=== PATIENT | female | born 1980 | race African-American/Black ===

== ENCOUNTER 2016-06-14 05:41 | Inpatient (IN) | payer BC ==
[2016-06-07 10:11] LABS: HEMATOCRIT 35.8 % (36.0-47.0); HEMOGLOBIN 11.7 g/dL (12.0-15.5); HGB HCT DIFFERENCE -0.7; MEAN CORPUSCULAR HEMOGLOBIN 28.1 pg (27.0-33.4); MEAN CORPUSCULAR HGB CONC 32.6 g/dL (32.0-36.0); MEAN CORPUSCULAR VOLUME 86 fl (80-97); RED BLOOD COUNT 4.15 10^6/uL (3.72-5.28); RED CELL DISTRIBUTION WIDTH 13.6 % (11.5-14.0); WHITE BLOOD COUNT 7.4 10^3/uL (4.0-10.5)
[2016-06-07 10:36] LABS: ANION GAP 14 (5-19); BLOOD UREA NITROGEN 12 mg/dL (7-20); CALCIUM 9.4 mg/dL (8.4-10.2); CARBON DIOXIDE 26 mmol/L (22-30); CHLORIDE 102 mmol/L (98-107); CREATININE RESULT 0.73 mg/dL (0.52-1.25); GLUCOSE 113 mg/dL (75-110); POTASSIUM 3.6 mmol/L (3.6-5.0); SODIUM 141.5 mmol/L (137-145)
[~2016-06-14 05:41] MED LIST: CEFAZOLIN SODIUM 1 GM in DEXTROSE 5%-WATER 50 ML IV PRN; LACTATED RINGERS 1000 ML IV PRN; LIDOCAINE 0.5% INJ-PF (5 MG/ML) 50 ML SDV SUBCUT PRN
[2016-06-14] MEDS ORDERED: BUPIVACAINE HCL 0.25 % INJ/PF (2.5 MG/1 ML) 30 ML VIAL ONE (06:38)
[2016-06-14] MEDS ORDERED: BUPIVACAINE INJ/PF LIPOSOME/PF 266 MG/20 ML SDV ONE (06:38)
[2016-06-14] MEDS ORDERED: PROPOFOL INJ 200 MG/20 ML VIAL IV ONE (07:25)
[2016-06-14] MEDS ORDERED: MIDAZOLAM 2 MG/2 ML INJ ONE (07:25)
[2016-06-14] MEDS ORDERED: HYDROMORPHONE HCL INJ/PF 2 MG/ML AMPULE ONE (07:25)
[2016-06-14] MEDS ORDERED: FENTANYL CITRATE INJ/PF 250 MCG/5 ML AMPULE ONE (07:25)
[2016-06-14] MEDS ORDERED: ACETAMINOPHEN 100 ML IV ONE (07:25)
[2016-06-14] MEDS ORDERED: DEXAMETHASONE SOD PHOSPHATE INJ 4 MG/1 ML VIAL ONE (07:43)
[2016-06-14] MEDS ORDERED: ROCURONIUM BROMIDE INJ 50 MG/5 ML VIAL IV ONE (07:43)
[2016-06-14] MEDS ORDERED: GLYCOPYRROLATE INJ 0.4 MG/2 ML VIAL ONE (07:43)
[2016-06-14] MEDS ORDERED: SUCCINYLCHOLINE CHLORIDE INJ 200 MG/10 ML VIAL ONE (07:43)
[2016-06-14] MEDS ORDERED: ONDANSETRON HCL INJ/PF 4 MG/2 ML SDV ONE (07:43)
[2016-06-14] MEDS ORDERED: NEOSTIGMINE METHYLSULFATE 10 MG/10 ML VIAL ONE (07:43)
[2016-06-14] MEDS ORDERED: DIPHENHYDRAMINE HCL 50 MG/ML VIAL IV PRN ×2 (08:05→11:29)
[2016-06-14] MEDS ORDERED: FENTANYL CITRATE INJ/PF 100 MCG/2 ML AMPUL IV PRN ×6 (08:05→11:29)
[2016-06-14] MEDS ORDERED: PROMETHAZINE HCL INJ 25 MG/1 ML VIAL IV PRN ×5 (08:05→18:58)
[2016-06-14] MEDS ORDERED: MEPERIDINE HCL/PF INJ 25 MG/1 ML DISP.SYRIN IV PRN ×2 (08:05→11:29)
[2016-06-14] MEDS ORDERED: OXYCODONE-ACETAMINOPHEN 5-325 MG TABLET PO PRN ×4 (08:05→11:29)
[2016-06-14] MEDS ORDERED: MORPHINE SULFATE 10 MG/ML INJ IV PRN ×2 (08:05→11:29)
[2016-06-14] MEDS ORDERED: ONDANSETRON 4 MG TAB.RAPDIS PO PRN (11:07)
--- NOTE | 2016-06-14 11:21 | Operative Report ---
Operative Report DATE OF SURGERY: 06/14/16 PREOPERATIVE DIAGNOSIS: Appendiceal mass POSTOPERATIVE DIAGNOSIS: Same OPERATION: Laparoscopic right hemicolectomy with stapled ilio transverse colostomy SURGEON: TSERING ANTHONY 1ST PAINT PREP TECHNICIAN: NEVA PATTEN ANESTHESIA: GA TISSUE REMOVED OR ALTERED: Right colon COMPLICATIONS: None ESTIMATED BLOOD LOSS: 100 mL INTRAOPERATIVE FINDINGS: See below PROCEDURE: The patient was seen in the preoperative holding area where the discussion the planned procedure was held with the patient, and her parents. That was for laparoscopic appendectomy, possible right hemicolectomy. Expresses understanding and agree to proceed. The patient taken the operating room where she was placed in supine position, general anesthesia induced. The arms were placed in the legs tucked, waist and chest strapped to the bed. The abdomen was exposed, prepped and draped sterile fashion is placed set up for laparoscopic surgery. Surgical plan and surgical timeout were conducted. We approach the abdomen through a supraumbilical access site. The knife wound was made just above the umbilicus, Veress needle was inserted and the peritoneal cavity, pneumoperitoneum established. Veress needle was removed, and a 5 mm port was inserted and 5 mm viewing scope was inserted. Direct visualization 2 additional ports were placed and 5 mm suprapubic position and a 12 mm left lower quadrant. Findings versus significant for no evidence of peritoneal implants. The liver both right and left lobes appeared normal as did the anterior surface of the stomach. The small bowel appeared normal. The omentum appeared normal. The pelvis was significant for a noted right tube and ovary, normal. Right lower quadrant was a mass associated with the cecum. The terminal ileum was somewhat edematous and slightly hyperemic as was the proximal ascending colon. Prepared to perform initially an appendectomy, but converted to a right hemicolectomy pending intraoperative findings. As previously noted, the patient 's preoperative CT scan showed a mass involving the appendix, 2-3 cm in diameter , with some enlarged adenopathy involving the iliac colic mesentery. This imaging study was done approximately 2-1/2 months ago. We began dissecting the white line of Toldt so as to mobilize the cecum. The tissue here was quite thickened. We used the hand-held LigaSure and opened up the retroperitoneum. The level of dissection was extended caudad and cephalad to begin mobilizing the cecum and ascending colon. Significant amount of scirrhous tissue was encountered. We were however able to take James dissection all the way up to the hepatic flexure. In the caudad direction were able to elevate the distal terminal ileum.Again the appendix was not visualized, primarily due to the mass effect likely involving the appendix and the posterior surface of the cecum. At this point I felt it was appropriate to obliquely to a laparoscopic right hemicolectomy as we had previously prepared the patient. He position her graspers, and opened up the gastrocolic omentum just on the cephalad side of the transverse colon. We took this level of dissection all the way to the hepatic flexure, going medial to lateral. We came around the hepatic flexure and joined our previous point of dissection. Now we repositioned our graspers and began our meso colic dissection. The ileocolic mesial colon was elevated. Using LigaSure , we are able to open up this plane, get into the retroperitoneal tissue and take level dissection all the way up to the duodenum. We were close but not perfectly in the precise plain to communicate with our previous levels of dissection superiorly and laterally, but we kept the duodenum in view throughout the entire dissection and eventually we able to break through the space into the previously dissected retroperitoneum. Then this dissection proceeded methodically with the duodenum in complete view. We had the second and proximal third portions of the duodenum exposed anteriorly. We now converted to the extracorporeal portion of the operation. The instruments were removed. The super umbilical incision was extended cephalad for approximately 8 cm. Fascia was divided, and the GelPort was deployed and the right colon was eviscerated. The mass involving the cecum was quite large. Nonetheless we had performed a outstanding laparoscopic dissection and the entire right mesial colon was able to be brought up into our open field. Suitable site for division of the transverse colon was chosen. This is just to the right of the lateral branch of the middle colic vessels. The omentum was partially divided with electrocautery and clamps as well as LigaSure device. The transverse colon was divided transversely firing of the blue load ERIKA 55 stapler. We chose a suitable site for division of the terminal ileum approximately 8 cm proximal to the ilio cecal junction. The ileocolic mesentery was further opened with cautery, then the ileum transected with a firing of the ERIKA 55 stapler blue load. We now took down the right knee; between clamps, and 0 Vicryl ties with excellent visualization and excellent control of all 3 pedicles including the ileocolic right colic and portion of the middle colic components. This was passed off the table, later photographed for documentation purposes. We now completed a ileotransverse [id number], functional end-to-end and Brendan. This was affected using 3-0 Vicryl suture to secure the antimesenteric borders, opening the ileum, transverse colon with scissors, and deploying the ERIKA 55 stapler to affect the anastomosis. The ileotomy and colotomy were closed with a TA 60 stapler. A very satisfied with the anastomosis as it was not under tension and the lead satisfactorily ensuring adequate blood supply. We returned the anastomosis to the peritoneal cavity applied to The GelPort resume pneumoperitoneum and visualized the intraperitoneal cavity. Bleeding was negligible. Peritoneal cavity was irrigated out. Were confident there was no kinking of the stenosis. Of note we did ask the defect created by the anastomosis shot with 3 interrupted 3-0 [id number] Vicryl sutures. Sponge and needle counts are correct. Troy the operation was complete. All ports were removed, fascia closed with 2 double-stranded #1 PDS sutures all wounds closed with mckenzie and 3-0 Vicryl suture and 20 mL of dilute Exparel was deployed into the space. NG tube was removed, patient extubated, taken recovery in stable condition. The physician registered medical assistant, Ms. Patten, provided assistance during this case by: Assisting and port insertion, retracting tissue, instillation of local anesthesia and closure of skin incisions.
[2016-06-14] MEDS: FENTANYL CITRATE INJ/PF 100 MCG/2 ML AMPUL ONE ×2 (11:56→12:07)
[2016-06-14] MEDS ORDERED: ACETAMINOPHEN INJ/PF 1000 MG/100 ML SDV IV SCH (12:00)
[2016-06-14] MEDS: MORPHINE SULFATE 10 MG/ML INJ IV PRN ×2 (14:10→22:13)
[2016-06-14] MEDS: KETOROLAC TROMETHAMINE INJ/PF 30 MG/1 ML SDV IV PRN ×2 (15:39→21:49)
[2016-06-14] MEDS: ACETAMINOPHEN 100 ML IV SCH ×2 (15:54→17:08)
[2016-06-14] MEDS ORDERED: MORPHINE SULFATE 10 MG/ML INJ IV ONE (17:00)
[2016-06-14] MEDS ORDERED: CEFAZOLIN SODIUM 1 GM in DEXTROSE 5%-WATER 50 ML IV SCH ×4 (18:00)
[2016-06-14] MEDS: CEFAZOLIN SODIUM 1 GM in DEXTROSE 5%-WATER 50 ML IV SCH (20:16)
[2016-06-14] MEDS: ONDANSETRON HCL INJ/PF 4 MG/2 ML SDV IV PRN (20:21)
[2016-06-15] MEDS: ACETAMINOPHEN 100 ML IV SCH ×4 (00:41→18:31)
[2016-06-15] MEDS: CEFAZOLIN SODIUM 1 GM in DEXTROSE 5%-WATER 50 ML IV SCH (00:41)
[2016-06-15] MEDS: ONDANSETRON HCL INJ/PF 4 MG/2 ML SDV IV PRN (07:18)
[2016-06-15] MEDS: MORPHINE SULFATE 10 MG/ML INJ IV PRN (07:18)
--- NOTE | 2016-06-15 07:31 | PDOC PROGRESS REPORT ---
Subjective Progress Note for:: 06/15/16 Subjective:: Patient having a detectable amount of abdominal pain. She got out of bed into chair. Had some nausea. No vomiting. Physical Exam Vital Signs: Temp Pulse Resp BP Pulse Ox 98.5 F 81 16 136/77 H 100 06/15/16 03:23 06/15/16 03:23 06/15/16 03:23 06/15/16 03:23 06/15/16 03:23 Intake & Output 06/14/16 06/15/16 06/16/16 06:59 06:59 06:59 Intake Total 0 3775 Output Total 3075 Balance 0 700 Weight 77.4 kg General appearance: PRESENT: no acute distress Eye exam: PRESENT: EOMI GI/Abdominal exam: PRESENT: other - Abdominal binder on; abdomen non-tender Results Laboratory Results: 06/07/16 08:50 06/07/16 08:50 Assessment & Plan - Diagnosis (1) Mass of appendix Is this a current diagnosis for this admission?: YesPlan: 1. Postoperative day 1 status post laparoscopic right hemicolectomy doing well , no complications thus far. 2. Will start surgical sips, discontinue Mars catheter, and ambulate patient. - Time Time Spent with patient: 15-24 minutes
[2016-06-15] MEDS ORDERED: RINGERS SOLUTION,LACTATED 1,000 ML IV PRN (09:07)
[2016-06-15] MEDS: KETOROLAC TROMETHAMINE INJ/PF 30 MG/1 ML SDV IV PRN (14:17)
[2016-06-16] MEDS: ACETAMINOPHEN 100 ML IV SCH ×2 (01:13→07:04)
[2016-06-16] MEDS: KETOROLAC TROMETHAMINE INJ/PF 30 MG/1 ML SDV IV PRN (17:11)
--- NOTE | 2016-06-16 20:27 | PDOC PROGRESS REPORT ---
Subjective Progress Note for:: 06/16/16 Subjective:: Late entry. Patient was seen this morning. Denies nausea, vomiting, bowel movement. Reports one small flatus. Physical Exam Vital Signs: Temp Pulse Resp BP Pulse Ox 98.9 F 99 15 127/86 H 100 06/16/16 16:17 06/16/16 16:17 06/16/16 16:17 06/16/16 16:17 06/16/16 16:17 Intake & Output 06/15/16 06/16/16 06/17/16 06:59 06:59 06:59 Intake Total 3775 1100 900 Output Total 3075 2900 1500 Balance 700 -1800 -600 Weight 77.4 kg 77.4 kg General appearance: PRESENT: no acute distress Head exam: PRESENT: normocephalic Eye exam: PRESENT: EOMI Respiratory exam: PRESENT: unlabored GI/Abdominal exam: PRESENT: distended, soft, tenderness, other - Distended. Appropriately tender. Incisions clean dry and intact. No bowel sounds.. ABSENT: guarding, rebound, rigid Neurological exam: PRESENT: alert, oriented to situation Skin exam: ABSENT: jaundice, rash Results Laboratory Results: 06/07/16 08:50 06/07/16 08:50 Assessment & Plan - Diagnosis (1) Mass of appendix Is this a current diagnosis for this admission?: YesPlan: Postop day 2. Doing well. On expected course. No bowel function yet. Patient is very thirsty. Okay for ice, one cup every 8 hours. SCDs, incentive spirometry, ambulate, Lovenox. Stop Toradol. Switched to D5 half-normal saline +20 mEq KCl.
[2016-06-17] MEDS: ENOXAPARIN SODIUM INJ 40 MG/0.4 ML DISP.SYRIN SUBCUT SCH (08:01)
[2016-06-17] MEDS: POTASSI CL 20 MEQ/D5-1/2NS 1L 1,000 ML IV PRN (17:30)
--- NOTE | 2016-06-17 21:48 | PDOC PROGRESS REPORT ---
Subjective Subjective:: Denies nausea or vomiting. Reports some flatus. No bowel movement. Ambulating in halls. Physical Exam Vital Signs: Temp Pulse Resp BP Pulse Ox 98.0 F 114 H 18 129/82 H 100 06/17/16 19:57 06/17/16 19:57 06/17/16 19:57 06/17/16 19:57 06/17/16 19:57 Intake & Output 06/16/16 06/17/16 06/18/16 06:59 06:59 06:59 Intake Total 5265 556 5119 Output Total 2900 2500 900 Balance -1800 -1600 830 Weight 77.4 kg 75.1 kg General appearance: PRESENT: no acute distress Eye exam: PRESENT: EOMI Mouth exam: PRESENT: tongue midline GI/Abdominal exam: PRESENT: distended, hypoactive bowel sounds, soft, tenderness , other - Incisions clean dry and intact. Neurological exam: PRESENT: alert, oriented to situation Results Laboratory Results: 06/07/16 08:50 06/07/16 08:50 Assessment & Plan - Diagnosis (1) Mass of appendix Is this a current diagnosis for this admission?: YesPlan: Still has hypoactive bowel sounds, although reports some flatus. Abdomen is distended with some tympany. Do not advance diet. Recommend patient go slow with by mouth intake. Continue incentive spirometry, SCDs, ambulation, Lovenox. Pathology reports still pending.
[2016-06-18] MEDS: POTASSI CL 20 MEQ/D5-1/2NS 1L 1,000 ML IV PRN (05:38)
[2016-06-18] MEDS: ENOXAPARIN SODIUM INJ 40 MG/0.4 ML DISP.SYRIN SUBCUT SCH (08:21)
[2016-06-18] MEDS ORDERED: HYDROCODONE/ACETAMINOPHEN 5-325 MG TABLET PO PRN (14:58)
--- NOTE | 2016-06-18 15:02 | PDOC PROGRESS REPORT ---
Subjective Subjective:: Good ambulation. No nausea or vomiting. Passing flatus and small BM 2. Tolerating clears. Pain is tolerable. Physical Exam Vital Signs: Temp Pulse Resp BP Pulse Ox 98.3 F 105 H 18 127/86 H 100 06/18/16 11:14 06/18/16 11:14 06/18/16 11:14 06/18/16 11:14 06/18/16 11:14 Intake & Output 06/17/16 06/18/16 06/19/16 06:59 06:59 06:59 Intake Total 900 2470 Output Total 2500 2450 Balance -1600 20 Weight 75.1 kg 75 kg General appearance: PRESENT: no acute distress Head exam: PRESENT: normocephalic Eye exam: PRESENT: EOMI Mouth exam: PRESENT: tongue midline Respiratory exam: PRESENT: unlabored GI/Abdominal exam: PRESENT: distended - Still slightly distended, but less than yesterday., soft, other - Bowel sounds in lower abdomen.. ABSENT: tenderness Musculoskeletal exam: PRESENT: ambulatory Neurological exam: PRESENT: alert, oriented to situation Psychiatric exam: PRESENT: appropriate affect, normal mood Skin exam: ABSENT: jaundice, rash Results Laboratory Results: 06/07/16 08:50 06/07/16 08:50 Assessment & Plan - Diagnosis (1) Mass of appendix Is this a current diagnosis for this admission?: YesPlan: Saline lock IV. Advanced to full liquid diet. Continue: Incentive spirometry, SCDs, ambulation, Lovenox. Pathology reports still pending.
[2016-06-19] MEDS: ENOXAPARIN SODIUM INJ 40 MG/0.4 ML DISP.SYRIN SUBCUT SCH (08:41)
--- NOTE | 2016-06-19 10:18 | DISCHARGE SUMMARY E ---
Discharge Summary NAME: ROBIN GUTIÉRREZ : 1980 AGE: 36Y ADMITTED: 06/14/2016 DISCHARGED: 06/19/2016 REASON FOR ADMISSION: Appendiceal mass. SUMMARY OF HOSPITALIZATION: The patient is a 36-year-old -[place] female who was brought to ambulatory surgery for laparoscopic appendectomy, possible right hemicolectomy. Intraoperatively, she was found to have an appendiceal mass fused to her cecum, necessitating right hemicolectomy. The patient underwent that procedure without complication. She had an uneventful postoperative course and by the fifth postoperative day was ready for discharge home. FINAL DIAGNOSIS: Pending status post laparoscopic right hemicolectomy by Dr. Moreno. DISPOSITION: The patient will be discharged home in the care of her family. Follow up with Dr. Moreno in 1-2 weeks, shower, take Percocet p.r.n. pain. She may shower. She will drive when she is not taking narcotics and this is discussed with her. DICTATING PHYSICIAN: TSERING MORENO M.D. [id number] PHY#: [id number] ID: [id number] JOB#: [id number] ACCT: [id number] cc:TSERING MORENO M.D. >
[2016-06-19 13:27] VITALS: BP 122/68
== END 2016-06-19 13:56 | disposition home or self-care (01) | DRG 331 ==
LOC: INOR 05:41 → EDSTATUS 07:30 → 4S 13:32
PROVIDERS: ADMIT Surgery; ATTEND Surgery
PROC: 0DTF4ZZ Resection of Right Large Intestine, Percutaneous Endoscopic Approach (ICD-10-PCS; principal; 2016-06-14 07:30)
PROC: 0D1B4ZL Bypass Ileum to Transverse Colon, Percutaneous Endoscopic Approach (ICD-10-PCS; 2016-06-14 07:30)
DX: K35.89 Other acute appendicitis (principal); K52.89 Other specified noninfective gastroenteritis and colitis; R31.9 Hematuria, unspecified
CPT/HCPCS: 36415; 790; 80048; 81025; 85027; 88307; 94799; C9290; J0131; J0330; J0690; J1100; J1170; J1650; J1885; J2250; J2270; J2405; J2704; J3010; J3480; J3490; J7120; S0119

== ENCOUNTER → 2016-07-19 | Outpatient (CLI) | payer BC | LOC: RAD 12:00 | PROVIDERS: ATTEND Internal Medicine Gastroenterology | DX: K50.00 Crohn's disease of small intestine without complications (principal) | CPT/HCPCS: 74177 ==

== ENCOUNTER 2018-04-07 18:42 | Emergency (ER) | payer BC, MEDICAID, OTHER ==
[2018-04-07 18:49] VITALS: BP 149/86
--- NOTE | 2018-04-07 19:19 | ER Document Report ---
ED Hand/Wrist Injury - General Mode of Arrival: Ambulatory Information source: Patient TRAVEL OUTSIDE OF THE [place] IN LAST 30 DAYS: No <EULOGIO CELIS - Last Filed: 04/07/18 19:38> <LATONIA MOYER - Last Filed: 04/07/18 19:40> - General Chief Complaint: Finger Injury Stated Complaint: FINGER INJURY Time Seen by Provider: 04/07/18 19:02 Notes: 37-year-old female who presents to the emergency department today with complaints of right middle finger pain. Patient states at work today she hit her hand on a medication cart. Patient complains of warmth, swelling, and pain to the tip of her right middle finger. 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 - Past Medical History Cardiac Medical History: Pulmonary Medical History: Neurological Medical History: Malignancy Medical History: Denies: Hx Leukemia GI Medical History: Denies: Hx Crohn's Disease, Hx Gastroesophageal Reflux Disease, Hx Hiatal Hernia, Hx Irritable Bowel, Hx Liver Failure, Hx Pancreatitis , Hx Ulcer Musculoskeletal Medical History: Infectious Medical History: Denies: Hx HIV Past Surgical History: Denies: Hx Colostomy - Immunizations Hx Diphtheria, Pertussis, Tetanus Vaccination: Yes <EULOGIO CELIS - Last Filed: 04/07/18 19:38> - Social History Family History: None <LATONIA MOYER - Last Filed: 04/07/18 19:40> Review of Systems - Review of Systems Constitutional: No symptoms reported EENT: No symptoms reported Cardiovascular: No symptoms reported Respiratory: No symptoms reported Gastrointestinal: No symptoms reported Genitourinary: No symptoms reported Female Genitourinary: No symptoms reported Musculoskeletal: See HPI, Other - right third finger pain Skin: No symptoms reported Hematologic/Lymphatic: No symptoms reported Neurological/Psychological: No symptoms reported -: Yes All other systems reviewed and negative <EULOGIO CELIS - Last Filed: 04/07/18 19:38> Physical Exam <EULOGIO CELIS - Last Filed: 04/07/18 19:38> <LATONIA MOYER - Last Filed: 04/07/18 19:40> - Vital signs Vitals: Temp Pulse Resp BP Pulse Ox 98.7 F 87 15 149/86 H 98 04/07/18 18:48 04/07/18 18:48 04/07/18 18:48 04/07/18 18:48 04/07/18 18:48 - Notes Notes: PHYSICAL EXAM GENERAL: Alert, interacts well. No acute distress. HEAD: Normocephalic, atraumatic. EYES: Pupils equal, round, and reactive to light. Extraocular movements intact. ENT: Oral mucosa moist, tongue midline. NECK: Full range of motion. Supple. Trachea midline. LUNGS: No respiratory distress. EXTREMITIES: Moves all 4 extremities spontaneously. Mild welling over the pad of the distal phalanx on the right third finger, no erythema or ecchymosis. Complains of pain in right third finger with extension against resistance. NEUROLOGICAL: Alert and oriented x3. Normal speech. PSYCH: Normal affect, normal mood. SKIN: Warm, dry, normal turgor. No rashes or lesions noted. (EULOGIO CELIS) Course <EULOGIO CELIS - Last Filed: 04/07/18 19:38> <LATONIA MOYER - Last Filed: 04/07/18 19:40> - Re-evaluation Re-evalutation: 04/07/18 19:25 X-rays negative for fracture dislocation. Patient has a contusion, will be discharged home with instructions on ice, elevation and anti-inflammatories. ( LATONIA MOYER) - Vital Signs Vital signs: Temp Pulse Resp BP Pulse Ox 98.7 F 87 15 149/86 H 98 04/07/18 18:48 04/07/18 18:48 04/07/18 18:48 04/07/18 18:48 04/07/18 18:48 Discharge <EULOGIO CELIS - Last Filed: 04/07/18 19:38> <LATONIA MOYER - Last Filed: 04/07/18 19:40> - Discharge Clinical Impression: Contusion of finger of right hand Qualifiers: Encounter type: initial encounter Finger: middle finger Damage to nail status: without damage Qualified Code(s): S60.031A - Contusion of right middle finger without damage to nail, initial encounter Condition: Stable Disposition: HOME, SELF-CARE Additional Instructions: Contusion Your injury has resulted in a contusion -- a crushing of the deep tissues. No injury to important structures was detected during the physician's exam. Contusions vary in the amount of pain they cause, and in the length of time required for healing. Typically, the area will become bruised, and will remain painful to touch for two or three weeks. However, most patients are back to working and playing within a few days. After the initial period of rest and cold-packs, your symptoms (together with the doctor's recommendations) will determine how rapidly you can get back to full activity. Usually this means "do what feels okay, but don't do things that hurt." If re-examination was recommended, it's important to follow up as instructed. Call the doctor or return any time if pain increases, if swelling becomes severe, if you develop numbness or weakness in an injured extremity, or if any other alarming symptoms occur. Forms: Return to Work Referrals: SUNNI STANLEY MD [Primary Care Provider] - Follow up as needed Scribe Attestation: 04/07/18 19:39 I personally performed the services described in the documentation, reviewed and edited the documentation which was dictated to the scribe in my presence, and it accurately records my words and actions. (LATONIA MOYER) Scribe Documentation - Scribe Written by Liliana:: Liliana Christie, 04/07/2018 1919 acting as scribe for :: Roshni <EULOGIO CELIS - Last Filed: 04/07/18 19:38>
--- NOTE | 2018-04-07 19:24 | RADIOLOGY REPORT (SQ) ---
EXAM DESCRIPTION: FINGER RIGHT COMPLETED DATE/TIME: 04/07/2018 7:15 pm REASON FOR STUDY: Hit hand on medcart and finger is painful/swollen COMPARISON: None. NUMBER OF VIEWS: Three views. TECHNIQUE: AP, lateral, and oblique images acquired of the right third finger. LIMITATIONS: None. FINDINGS: MINERALIZATION: Normal. BONES: No acute fracture or dislocation. No worrisome bone lesions. SOFT TISSUES: No soft tissue swelling. No foreign body. OTHER: No other significant finding. IMPRESSION: NO RADIOGRAPHIC EVIDENCE OF ACUTE INJURY. COMMENT: SITE OF TRAUMA/COMPLAINT MARKED/STAMP COMPLETED: YES. TECHNICAL DOCUMENTATION: JOB ID: [id number] [employer]- All Rights Reserved Reading location - IP/workstation name: [email or web address]
== END 2018-04-07 19:34 | disposition home or self-care (01) ==
LOC: ER 18:42
DX: S60.031A Contusion of right middle finger without damage to nail, initial encounter (principal); M79.89 Other specified soft tissue disorders; W22.8XXA Striking against or struck by other objects, initial encounter
CPT/HCPCS: 99283